=== PATIENT | male | born 1965 | race African-American/Black ===

== ENCOUNTER → 2016-12-26 | Outpatient (CLI) | payer OTHER | LOC: MMPC 11:11 | PROVIDERS: ATTEND Nurse Practitioner | DX: R07.81 Pleurodynia (principal); M25.571 Pain in right ankle and joints of right foot; W00.9XXA Unspecified fall due to ice and snow, initial encounter | CPT/HCPCS: 99213; G0463 ==

== ENCOUNTER → 2017-02-04 | Outpatient (CLI) | payer OTHER ==
--- NOTE | 2017-02-04 13:57 | DI ---
RIGHT ANKLE, 02/04/2017 11:18 AM: Clinical History: Chronic right ankle pain. Previous Exam: 04/28/2016. 3 views are submitted. There is no acute soft tissue, osseous, or joint abnormality. On the previous exam, there was a fracture of the calcaneus and this has healed. Readin. No acute abnormality of the ankle joint is seen. 2. The calcaneal fracture has healed.
== END ==
LOC: RAD 11:13
PROVIDERS: ATTEND Internal Medicine
DX: M25.571 Pain in right ankle and joints of right foot (principal)
CPT/HCPCS: 73610

== ENCOUNTER → 2017-02-10 | Outpatient (CLI) | payer OTHER | LOC: MMPC 11:11 | PROVIDERS: ATTEND Internal Medicine | DX: M25.571 Pain in right ankle and joints of right foot (principal); I10 Essential (primary) hypertension | CPT/HCPCS: 99213 ==

== ENCOUNTER → 2017-02-26 | Outpatient (CLI) | payer OTHER | LOC: MMPC 10:00 | PROVIDERS: ATTEND Physician Assistant | DX: M25.571 Pain in right ankle and joints of right foot (principal); M72.2 Plantar fascial fibromatosis; S92.001S Unspecified fracture of right calcaneus, sequela | CPT/HCPCS: 99212; G0463 ==

== ENCOUNTER 2017-12-01 05:54 | Inpatient (IN) ==
[2017-12-01] MEDS ORDERED: NORMAL SALINE 10 ML SYRINGE FLUSH IVP PRN ×2 (06:12→09:16)
[2017-12-01 07:24] LABS: BASOPHILS # (AUTO) 0.01 10*3/UL; BASOPHILS % (AUTO) 0.2 % (0-1); EOSINOPHILS # (AUTO) 0.06 10*3/UL; EOSINOPHILS % (AUTO) 1.2 % (0-8); Hemoglobin [HGB] 15.8 g/dL (14.0-18.0); LYMPHOCYTES # (AUTO) 1.73 10*3/uL; MEAN CORPUSCULAR HEMOGLOBIN 37.1 PG (27-31); MEAN CORPUSCULAR HGB CONC 36.7 g/dL (33-37); MEAN CORPUSCULAR VOLUME 100.9 FL (80-90); MEAN PLATELET VOLUME 8.6 FL (7.4-12.2); MONOCYTES # (AUTO) 0.89 10*3/UL (0.3-0.8); NEUTROPHILS # (AUTO) 2.24 10*3/UL; NEUTROPHILS % (AUTO) 45.3 % (50-80); RED BLOOD COUNT 4.26 10^6/uL (4.70-6.10)
[2017-12-01 07:25] LABS: PLATELET MORPHOLOGY COMMENT NORMAL MORPHOLOGY (NORM); RBC MORPHOLOGY COMMENT NORMAL MORPHOLOGY (NORM); WBC MORPHOLOGY COMMENT NORMAL MORPHOLOGY (NORM)
[2017-12-01 07:32] LABS: BLOOD UREA NITROGEN 6 mg/dL (7-22); BUN/CREATININE RATIO 6.66 (6-20); SERUM ALBUMIN 4.2 g/dL (3.5-4.8)
[2017-12-01] MEDS ORDERED: POTASSIUM CHLORIDE 20 MEQ TAB PO ONE ×2 (07:57→09:16)
--- NOTE | 2017-12-01 08:09 | EKG ---
[address] [place] [address] Measurements Intervals [place] Rate: 74 P: 67 [place]: 158 QRS: 11 QRSD: 111 T: 31 QT: 345 QTc: 373 Interpretive Statements SINUS RHYTHM MODERATE INTRAVENTRICULAR CONDUCTION DELAY [110+ ms QRS DURATION] NONSPECIFIC ST & T-WAVE ABNORMALITY Compared to ECG 05/12/2016 13:41:10 Intraventricular conduction delay now present T-wave abnormality now present (consistent with hypokalemia) Electronically Signed On 12-01-17 16:09:52 MST by Jose A Baron MD [email or web address]
--- NOTE | 2017-12-01 09:07 | PDOC ---
General Adult HPI - General Chief Complaint: Respiratory Complaint Stated Complaint: Lightheaded and starting to get short of breath. Date Seen by Provider: 12/01/17 Time Seen by Provider: 06:10 - History of Present Illness Initial Comment: This patient is a very nice 52-year-old -[place] gentleman who presents to the emergency department with complaints of dyspnea and not breathing right. He states that he has not had fever or chills or cough or increased sputum production he has not had any general malaise. He just feels that his respirations are not right. 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 Otherwise he has not had nausea vomiting diarrhea or other infective type of symptoms as well. He is denying any chest pain. He is denying any palpitations. Have you received a tetanus shot in the past 10 years?: Yes - Patient Home Medications Home Medications: Home Medications Diclofenac Sodium 1 gm TP QID #1 gm 02/03/17 amlodipine 10 mg tablet 10 mg PO QDAY #30 tab 10/23/17 levothyroxine 100 mcg tablet 100 mcg PO QDAY #30 tab 10/23/17 - Patient Allergies Allergies/Adverse Reactions: Allergies 3 Allergy/AdvReac Type Severity Reaction Status Date / Time No Known Allergies Allergy Verified 11/22/17 12:39 Past Medical History - heen HEENT History: Chipped or Loose Teeth, Other (please comment) Additional HEENT History: MULT. DENTAL CARIES Cardiovascular History: Hypertension Respiratory History: Other (please comment) Additional Respiratory History: TRACHECTOMY AFTER HAVING VOCAL CORD CANCER Gastrointestinal History: Denies History Genitourinary History: Denies History Endocrine History: Denies History Musculoskeletal History: Denies History Prosthesis or Implant: No Neurological History: Denies History Blood Disorders: Denies History Psychiatric History: Denies History History of Sexually Transmitted Diseases: No Male Reproductive History: Denies History Cancer History: Other (please comment) Cancer Treatment / Date(s) of Treatment: 2009 In Past Year Been Physically Harmed or Verbally Threatened: No History of MDRO: No History of Other Communicable Diseases: No Tobacco Use: Current Every Day Smoker Alcohol Use: Occasionally Type of alcohol normally used: Beer In the Past 12 Months, Have Used or Abuse Any Substance: None Previous Surgical History: Yes Type / Date of Surgery: tracheotomy only Significant Family History: No pertinent family hx Past Medical History Reviewed: Reviewed - No Changes ROS - Limitations ROS Limitations: No Limitations Constitution: REPORTS: Denies Symptoms Cardiovascular: REPORTS: Denies Cardiac Symptoms Neurological: REPORTS: Denies Neuro Symptoms Gastrointestinal: REPORTS: Denies GI Symptoms General Adult Exam - General Appearance General Appearance: POSITIVE: Alert, Cooperative, No Acute Distress - HEENT HEENT: POSITIVE: Head Inspection Nml, Eyes Inspection Nml - Neck Neck: POSITIVE: Normal Inspection - Respiratory Respiratory: POSITIVE: No Respiratory Distress, Breath Sounds Normal - Cardiovascular Cardiovascular: POSITIVE: Regular Rate & Rhythm, No Murmur - Abdomen Abdomen: Soft: (All Quadrants), Normal Bowel Sounds: (All Quadrants), Denies Tenderness: (All Quadrants) - Extremities Extremity: Non-Tender: (All Extremities), Normal ROM: (All Extremities), Normal Inspection: (All Extremities) General Adult Progress - Results Reviewed by me Xrays/CTs/US Reviewed by me: Yes Radiology Findings: Benign appearing chest x-ray and CT angiogram of the chest does not show obvious pathology radiology over read is pending CBC and BMP: 12/01/17 06:50 12/01/17 06:50 - Patient's Progress Status: POSITIVE: Improved MDM / ED Course: Initial evaluation was done and showed that his vitals were relief white benign he was not hypoxic at all and not tachycardic and still not complaining of chest pain. Initial labs showed no significant abnormality of the exception of a low potassium at 1.9 and an elevated d-dimer. Chest x-ray appear benign as well. CT angiogram was performed due to history of malignancy and elevated d- dimer and complaint of shortness of breath. I have not gotten back the official over read on his CT angiogram but I do not see any significant PE based on my own read. He has been given 20 mEq IV potassium and 20 mEq of oral potassium and will be admitted for observation today to evaluate his hypokalemia and to wait for over read of his chest CT and monitor his respiratory condition. His case has been discussed the hospitalist who agrees to accept the patient. Patient Care Time - Estimated PCT Patient Care Time (In Minutes): 35 Vital Signs - Recent Vital Signs Vital Signs: Vital Signs (Last 8 hours) Temp Pulse Pulse Resp BP Pulse Ox 12/01/17 08:09 74 12/01/17 06:07 96 F L 81 16 114/78 98 - VS Reviewed Vital Signs Reviewed: Yes Discharge Clinical Impression: Hypokalemia Discharge Disposition: Admit to Observation Condition: Stable Follow Up With: EMILY QUINONEZ [Primary Care Provider] -
[2017-12-01] MEDS ORDERED: ACETAMINOPHEN 325 MG TABLET PO PRN (09:16)
[2017-12-01] MEDS ORDERED: CALCIUM CARBONATE 500 MG (TUMS) CHEWABLE TABLET PO PRN (09:16)
[2017-12-01] MEDS ORDERED: LIDOCAINE W/ SODIUM BICARB 0.5 ML SYR SUBD PRN (09:16)
[2017-12-01] MEDS ORDERED: Magnesium Sulfate 2gm (Premix) 2 GM/50 ML BAG IV ONE (09:16)
[2017-12-01] MEDS ORDERED: ONDANSETRON 4 MG/2 ML VIAL IVP PRN (09:16)
--- NOTE | 2017-12-01 09:32 | DI ---
PA /LATERAL CHEST X-RAY, 12/01/2017 6:12 AM : Clinical History: Shortness of breath. Previous Exam: 12/02/2015. There is no acute soft tissue or bony abnormality. The patient has a permanent tracheostomy tube and the tube is in the appropriate position. Heart size is normal. Lungs are clear. Mediastinal structure s are normal. There are no pulmonary nodules. Reading: Normal chest x-ray. There has been no significant interval change.
--- NOTE | 2017-12-01 09:39 | DI ---
CT ANGIOGRAM OF THE CHEST, 12/01/2017 8:02 AM : Clinical History: Dyspnea. Elevated D-dimer test. Previous Exam: None at this facility. Scans are performed from the base of the neck to the lower lung bases following IV administration of 65 mL of Isovue 300. Proprietary automated bolus tracking software was used to verify the timing of t he injection. The base of the neck and thoracic inlet are normal except for decreased density in the thyroid gland as well as presence of a permanent tracheostomy tube. There are no abnormal axillary, supraclavicular , mediastinal, or hilar nodes. The heart is normal. There is clot present in branches to the right up per lobe causing partial occlusion. These involve branches to the 3 segments. There is no evidence of a pulmonary infarct. No other pulmonary embolism is identified. The lungs are clear and there are no pulmonary nodules or masses. Both adrenal glands and the spleen and the visualized portions of the p ancreas are normal. Fatty infiltration of the liver is suspected. READIN. There are pulmonary emboli extending to branches of all 3 segments of the right upper lobe causin g partial occlusion of those vessels. There is no pulmonary infarction. 2. The remainder of the study is normal. 3. There may be fatty infiltration of the liver. There is decreased density in the thyroid gland sug gesting this patient may have underlying hypothyroidism.
[2017-12-01 10:26] LABS: BILIRUBIN,URINE NEGATIVE (NEG); CLARITY,URINE CLEAR (CLEAR); COLOR,URINE YELLOW (Y); GLUCOSE, URINE (UA) NEGATIVE (NEG); OCCULT BLOOD,URINE NEGATIVE (NEG); PROTEIN,URINE NEGATIVE (NEG)
[2017-12-01 10:28] LABS: URINE SAMPLE TYPE CLEAN CATCH URINE
[2017-12-01 11:54] LABS: RANDOM URINARY POTASSIUM < 2.5 MMOL/DAY (25.0-125.0)
[2017-12-01] MEDS: ENOXAPARIN SODIUM 80 MG/0.8 ML SYRINGE SUBCUT SCH (12:53)
--- NOTE | 2017-12-01 12:59 | PDOC ---
HPI - History of Present Illness Date of Service: 12/01/17 Time of Service: 11:00 Chief Complaint: Shortness of breath History of Present Illness: This very pleasant 52-year-old male with prior history of vocal cord cancer status post surgery, chemotherapy, and radiation, who had this happen about 6-7 years ago, who comes in this morning complaining of shortness of breath. He felt it was of sudden onset. He has some chronic intermittent posterior neck pain that's probably related to a lipoma that felt different to him today. He had she felt like he may have had a blood clot. He had no fevers, no cough, no chills. No secretions via the tracheostomy tube that is permanently in place. He's never had a blood clot before. He continues to smoke about a half pack per day. He did not try anything interventionally to make the symptoms better, but when it persisted and got worse over the last day or so, he came in for evaluation in the emergency room. A CT scan was done in the emergency room, and on my view of the results, it is positive for pulmonary emboli and on my view there is no evidence of infarct or pneumonia. In addition, the patient was found to have a low potassium at 1.9 and his last couple of potassiums in clinic draws have been low. It is possible that he had some damage to his potassium and magnesium sequestration from the kidneys due to chemotherapy agents. I do not know what regimen he was on. He is not requiring oxygen at this point and is not hypoxic. He does not have any evidence of right heart strain on his EKG. Denies sickle cell anemia. Past Medical History Medical History: 1. Vocal cord cancer. 2. Hypertension. 3. Tobacco abuse. 4. 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 5. Carpal tunnel syndrome, right side Surgical History: Vocal cord removal. This was related to cancer. Pertinent Family History: Significant for coronary artery disease. Past Social History: Smokes half pack per day, does drink alcohol occasionally. In a committed relationship. Has 2 biologic children and 11 children overall , all of whom are healthy. He is currently on disability. Tobacco Use: Current Every Day Smoker Do you dip or chew tobacco: No In the Past 12 Months, Have Used or Abuse Any of the Following Substance: None Alcohol Use: Occasionally Medication / Allergies Home Medications: Home Medications Medication Instructions Recorded Confirmed Type amlodipine 10 mg tablet 10 mg PO QDAY #30 tab 10/23/17 12/01/17 Rx levothyroxine 100 mcg tablet 100 mcg PO QDAY #30 tab 10/23/17 12/01/17 Rx Allergies/Adverse Reactions: Allergies 3 Allergy/AdvReac Type Severity Reaction Status Date / Time No Known Allergies Allergy Verified 12/01/17 09:37 Review of Systems - Review of Systems All Systems: Reviewed & No Additional Complaints Except as Stated (I did a 12 point review systems and other than that discussed in history present illness the review systems is negative. Exceptions are noted below.) - Respiratory Respiratory: REPORTS: See HPI - Cardiovascular Cardiovascular: REPORTS: Negative System Review - Additonal Details Additional ROS Details: Chronic neck pain, probably from a lipoma, and carpal tunnel on the right. Exam - Vitals Vital Signs: Vital Signs Temperature 98 F Temperature Source Temporal Artery Scan Pulse Rate [Pulse Oximeter 76 Bilateral Radial] Respiratory Rate 18 Blood Pressure [Left Arm] 146/80 Pulse Ox 93 Oxygen Delivery Method Room Air Height 5 ft 6 in Weight 137 lb 3.2 oz - General General Appearance: No Acute Distress, Cooperative - Head Head Exam: Normal Inspection, Normocephalic, Atraumatic - Eye Eye Exam: POSITIVE: No Scleral Icterus - ENT ENT Exam: POSITIVE: Mucous Membranes Moist - Neck Neck Exam: No Tenderness, No Lymphadenopathy, No Thyromegaly Additional Neck Exam Details: Tracheostomy present, no secretions. No erythema surrounding the tracheostomy site - Respiratory Respiratory Exam: POSITIVE: Clear to Auscultation - Bilaterally, Breathing Non Labored, Normal to Percussion and Palpation - Cardiovascular Cardiovascular Exam: POSITIVE: RRR, No Murmur, No Clicks, No Gallops, No Rubs, No JVD - GI/Abdominal GI/Abdominal Exam: POSITIVE: Normal Bowel Sounds, Non Tender, Non Distended, Soft - Rectal Rectal Exam: POSITIVE: Deferred - External Exam: POSITIVE: Deferred Exam: POSITIVE: Deferred - Extremities Extremities Exam: POSITIVE: No Clubbing Present, No Edema Present, No Cyanosis Present - Back Back Exam: POSITIVE: Normal Inspection, No CVA Tenderness - Neurological Neurological Exam: POSITIVE: Alert, Oriented x 3, No Facial Droop, Speech Intact / Clear, Moves All Extremities Equally - Psychiatric Psychiatric Exam: POSITIVE: Normal Affect, Normal Mood Results - Labs CBC and BMP: 12/01/17 06:50 12/01/17 06:50 Additional Lab Results: Laboratory Results 12/01/17 12/01/17 12/01/17 Range/Units 06:50 06:50 06:50 WBC 4.95 (4.8-10.8) 10^3/uL RBC 4.26 L (4.70-6.10) 10^6/uL Hgb 15.8 (14.0-18.0) g/dL Hct 43.0 (42.0-52.0) % MCV 100.9 H (80-90) FL MCH 37.1 H (27-31) PG MCHC 36.7 (33-37) g/dL RDW Std Deviation 57.1 H (39-50) fL RDW Coeff of Ming 15.9 H (11.5-14.5) % Plt Count 234 (140-350) 10*3/uL MPV 8.6 (7.4-12.2) FL Immature Gran % (Auto) 0.4 (0-5) % Neut % (Auto) 45.3 L (50-80) % Lymph % (Auto) 34.9 (10-50) % [place] % (Auto) 18.0 H (5-15) % Eos % (Auto) 1.2 (0-8) % Baso % (Auto) 0.2 (0-1) % Immature Gran # (Auto) 0.02 10*3/UL Neut # (Auto) 2.24 10*3/UL Lymph # (Auto) 1.73 10*3/uL [place] # (Auto) 0.89 H (0.3-0.8) 10*3/UL Eos # (Auto) 0.06 10*3/UL Baso # (Auto) 0.01 10*3/UL WBC Morphology Comment Normal morphology (NORM) Plt Morphology Comment Normal morphology (NORM) RBC Morph Comment Normal morphology (NORM) D-Dimer 0.79 H (0.00-0.59) mg/L Sodium 142 (135-145) meq/L Potassium 1.9 L* (3.8-5.2) meq/L Chloride 97 L (98-112) meq/L Carbon Dioxide 28 (23-33) meq/L Anion Gap 17 (5-20) BUN 6 L (7-22) mg/dL Creatinine 0.9 (0.70-1.50) mg/dL Estimated GFR > 60 (>60 ml/min/1.73m(2)) BUN/Creatinine Ratio 6.66 (6-20) Glucose 120 H (78-110) mg/dL Calculated Osmolality 292.0 (267-292) mOsm/kg Calcium 9.1 (8.7-10.7) mg/dL Magnesium (1.6-2.4) mg/dL Total Bilirubin 0.9 (0.3-1.2) mg/dL AST 43 (21-57) IU/L ALT 35 (21-72) IU/L Alkaline Phosphatase 141 H (38-126) IU/L Total Protein 7.7 (6.1-8.0) g/dL Albumin 4.2 (3.5-4.8) g/dL Globulin 3.5 (2.50-4.10) g/dL Albumin/Globulin Ratio 1.20 L (1.3-2.0) mg/g Ur Collection Type Urine Color (Y) Urine Clarity (CLEAR) Urine pH (5.0-8.5) Ur Specific [place] (1.005-1.030) Urine Protein (NEG) mg/dl Urine Glucose (UA) (NEG) mg/dL Urine Ketones (NEG) Urine Occult Blood (NEG) Urine Nitrate (NEG) Urine Bilirubin (NEG) Urine Urobilinogen (0.2) EU/dL Ur Leukocyte Esterase (NEG) Ur Culture Indicated? Ur Random Creatinine MG/DL Ur Random Sodium Ur Random Potassium (25.0-125.0) MMOL/DAY 12/01/17 12/01/17 12/01/17 Range/Units 10:20 10:20 Unknown WBC (4.8-10.8) 10^3/uL RBC (4.70-6.10) 10^6/uL Hgb (14.0-18.0) g/dL Hct (42.0-52.0) % MCV (80-90) FL MCH (27-31) PG MCHC (33-37) g/dL RDW Std Deviation (39-50) fL RDW Coeff of Ming (11.5-14.5) % Plt Count (140-350) 10*3/uL MPV (7.4-12.2) FL Immature Gran % (Auto) (0-5) % Neut % (Auto) (50-80) % Lymph % (Auto) (10-50) % [place] % (Auto) (5-15) % Eos % (Auto) (0-8) % Baso % (Auto) (0-1) % Immature Gran # (Auto) 10*3/UL Neut # (Auto) 10*3/UL Lymph # (Auto) 10*3/uL [place] # (Auto) (0.3-0.8) 10*3/UL Eos # (Auto) 10*3/UL Baso # (Auto) 10*3/UL WBC Morphology Comment (NORM) Plt Morphology Comment (NORM) RBC Morph Comment (NORM) D-Dimer (0.00-0.59) mg/L Sodium (135-145) meq/L Potassium (3.8-5.2) meq/L Chloride (98-112) meq/L Carbon Dioxide (23-33) meq/L Anion Gap (5-20) BUN (7-22) mg/dL Creatinine (0.70-1.50) mg/dL Estimated GFR (>60 ml/min/1.73m(2)) BUN/Creatinine Ratio (6-20) Glucose (78-110) mg/dL Calculated Osmolality (267-292) mOsm/kg Calcium (8.7-10.7) mg/dL Magnesium 1.8 (1.6-2.4) mg/dL Total Bilirubin (0.3-1.2) mg/dL AST (21-57) IU/L ALT (21-72) IU/L Alkaline Phosphatase (38-126) IU/L Total Protein (6.1-8.0) g/dL Albumin (3.5-4.8) g/dL Globulin (2.50-4.10) g/dL Albumin/Globulin Ratio (1.3-2.0) mg/g Ur Collection Type Clean catch urine Urine Color Yellow (Y) Urine Clarity Clear (CLEAR) Urine pH 7.0 (5.0-8.5) Ur Specific [place] 1.015 (1.005-1.030) Urine Protein Negative (NEG) mg/dl Urine Glucose (UA) Negative (NEG) mg/dL Urine Ketones Negative (NEG) Urine Occult Blood Negative (NEG) Urine Nitrate Negative (NEG) Urine Bilirubin Negative (NEG) Urine Urobilinogen 2.0 (0.2) EU/dL Ur Leukocyte Esterase Negative (NEG) Ur Culture Indicated? Culture not set Ur Random Creatinine 13.9 MG/DL Ur Random Sodium Wood Handler Ur Random Potassium < 2.5 L (25.0-125.0) MMOL/DAY - EKG Data -: EKG Interpreted by Me Rate: Normal EKG Shows Normal: Sinus Rhythm - EKG Data EKG Interpretation: Nonspecific ST-T Wave Changes - Imaging Status: Image Reviewed by Me (Chest x-ray is negative on my view. CT scan of chest, negative for pneumonia or pulmonary infarct. Radiologist stated that it was positive for right upper lobe branch pulmonary emboli) Assessment and Plan - Patient Problems (1) Acute pulmonary embolism Current Visit: Yes Status: Acute Code(s): I26.99 - Other pulmonary embolism without acute cor pulmonale Qualifiers: Pulmonary embolism type: other Acute cor pulmonale presence: without acute cor pulmonale Qualified Code(s): I26.99 - Other pulmonary embolism without acute cor pulmonale (2) Hypokalemia Current Visit: Yes Status: Acute Code(s): E87.6 - Hypokalemia (3) Hypertension Current Visit: Yes Status: Acute Code(s): I10 - Essential (primary) hypertension Qualifiers: Hypertension type: essential hypertension Qualified Code(s): I10 - Essential (primary) hypertension (4) Tracheostomy in place Current Visit: Yes Status: Acute Code(s): Z93.0 - Tracheostomy status (5) hypothyroidism Current Visit: Yes Status: Chronic (6) cancer of vocal cords Current Visit: Yes Status: Resolved - Assessment / Plan Additional Assessment/Plan Details: Replace magnesium and potassium. May need renal follow-up as an outpatient. Get arranged with hematology and oncology determine length of therapy this can be done as an outpatient. I think ultimately probably is at high risk as this appears to be provoked with risk factors of tobacco abuse and prior cancer, but may warrant further screening of cancer as well such as repeat colonoscopy. Spoke to him about Coumadin, Xarelto, and other medications, including bleeding risks and ability to prevent another blood clot. Ultimately he would like to do eliquis, but not sure yet if it will be cost prohibitive. We will call into his pharmacy and figure that out. Then presented the patient with options, ultimately as mentioned he has his choice made, but this may not be economically feasible. Oxygen as necessary. Get ultrasounds of upper extremities and jugular veins. Get echocardiogram to make sure there is no evidence of right heart strain. I spoke with the patient about quitting smoking as well and advised him to quit smoking and we will current nicotine patch here. He is committed to trying this , this developed plan of nicotine patches. plan above discussed with patient and his girlfriend and they agreed.
[2017-12-01] MEDS ORDERED: DICLOFENAC SODIUM 1 GM TP SCH (13:00)
[2017-12-01] MEDS ORDERED: IBUPROFEN 600 MG TABLET PO PRN (13:45)
[2017-12-01 14:38] LABS: BLOOD UREA NITROGEN 4 mg/dL (7-22); BUN/CREATININE RATIO 5.71 (6-20)
[2017-12-01] MEDS: POTASSIUM CHLORIDE 20 MEQ TAB PO SCH ×2 (15:15→20:02)
--- NOTE | 2017-12-01 18:10 | DI ---
DUPLEX COLOR DOPPLER CAROTID ULTRASOUND, 12/01/2017 2:01 PM: Clinical History: [place]. 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 Previous Exam: None at this facility. Technique: 2D real time imaging is supplemented with duplex color doppler ultrasound imaging. RIGHT CAROTID ARTERY: 2D real time imaging of the right carotid system shows occlusion of the right common carotid artery. This has the appearance of thrombus rather than classic plaque disease. The common carotid artery is occluded at the origin from the subclavian artery. At the bifurcation, flow is visualized in the inte rnal and extra carotid arteries and the waveform is reverse indicating retrograde filling. Peak systo lic velocities through the right external and internal carotid arteries are approximately 4 cm/s, res pectively. There is apparent complete occlusion of the common carotid artery and there is slow flow t hat is reversed in the external and internal carotid arteries indicating retrograde perfusion from th e left side in the [place]. LEFT CAROTID ARTERY: 2D real time imaging of the left carotid system shows minimal intimal thickening of the proximal comm on carotid artery with some calcified plaques at the junction between the proximal and middle thirds of the common carotid artery. Noncalcified plaques are present in the distal common carotid artery an d the carotid bulb. Peak systolic velocities through the left common carotid, the external carotid, a nd the internal carotid are 122 cm/s, 29 cm/s, and 172 cm/s, respectively. The values for the left co mmon carotid artery and external carotid artery correspond to diameter stenoses of 0-49%. Evaluate fo r the left internal carotid artery corresponds to a diameter stenosis of 50-74%. VERTEBRAL ARTERIES: There is antegrade flow through the left vertebral artery. There is vascular flow in the region of th e right vertebral artery but this appears to be venous. Cardiac rhythm is regular. Peak systolic [place] through the visualized portions of the left vertebral artery is 83 cm/s. This value corresponds to a diameter stenoses of 0-49%. Readin. 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 There is flow in the right external and internal carotid arteries but this is of markedly low flow and apparently is reversed in direction indicating retrograde filling fr om the left side via the [place]. 2. There is no hemodynamically significant stenosis of the left carotid system. 3. The right vertebral artery may be totally occluded. There is antegrade flow through the left vert ebral artery with a normal sinus rhythm.
[2017-12-01] MEDS: Apixaban 5 MG TABLET PO SCH (20:01)
[2017-12-01] MEDS ORDERED: DOCUSATE 100 MG CAPSULE PO PRN (21:00)
[2017-12-01] MEDS ORDERED: Zolpidem Tab 5 MG TAB PO PRN (21:04)
--- NOTE | 2017-12-01 22:49 | DI ---
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 Previous Exam: None at this facility. Comparison is made with a CT scan of the neck with IV contrast from 10/09/2014. Pre-and postcontrast scans are performed from the sternal notch to of the neck to the base of the [facility] following IV administration of 70 mL of Isovue 300. Proprietary automated bolus tracking software was used to verify the timing of the injection. The base of the neck and thoracic inlet are normal. The focal cords and larynx are not identified con sistent with the history of prior laryngectomy. The patient has a permanent tracheostomy tube. There are no abnormal cervical lymph nodes. The right common carotid artery is occluded at its origin from the subclavian artery up to the bifurcation. Contrast is present in the superior aspect of the caroti d bulb and the right internal and extrahepatic arteries but these vessels are small and ultrasound sh owed that there was retrograde perfusion of these vessels. Review of the CT scan of the neck from shows that the right common carotid artery was patent. The right internal carotid artery to t base of the skull is normal. The left common carotid artery and external and internal carotid luz marina connie are patent and there are calcified plaques in the posterior aspect of the carotid bulb. The inte rnal carotid artery to the base of the skull is normal. There is occlusion of the right vertebral art facundo less than 1 cm distal to its origin. Review of the previous CT scan shows that in retrospect this vessel was occluded although there was retrograde filling of a venous channel in the right side of t he neck that simulated the right vertebral artery. There is a direct origin of the left vertebral art facundo from the aortic arch and this is normal to the base of the skull. READIN. There is complete occlusion of the right common carotid artery from its origin from the right sub clavian artery to the proximal half of the carotid bulb. The distal half of the carotid bulb and the right internal and extra carotid arteries are filled with contrast but the caliber of these vessels i s decreased and ultrasound showed that there was retrograde filling of these vessels. This occlusion is new since the prior CT scans of 10/09/2014. 2. There is complete occlusion of the right vertebral artery near its origin all the way to the base of the skull. Review of the prior CT scans from 10/09/2014 shows that it was occluded at that time a lthough there were some venous channels that filled in the neck region from the right arm injection a nd this simulated the appearance of a patent right vertebral artery. 3. The left vertebral artery has a direct origin from the aortic arch and is normal. CT ANGIOGRAPHY OF THE [place], 12/01/2017 3:28 PM : Clinical History: See above. Previous Exam: None at this facility. Non contrast head scans are performed. This is the same bolus of Isovue [address] angiogram of the neck. High resolution axial thin slices through the [place] are obtained during the a rterial phase. 3D MIPS and multiplanar reconstructions are generated from the acquired data using the [employer] off line processing program. The left vertebral artery is normal. The right vertebral artery is occluded near its origin to the ba silar artery. There is no basilar tip aneurysm or aneurysm arising from the vertebral-basilar branche s. There are large posterior communicating arteries, and the left side is larger than the right. The right cavernous and petrous portions of the internal carotid artery are small in caliber. No definite anterior communicating artery is identified. The A1 and A2, and the M1 through M3 branches bilateral ly are normal. The pre-and postcontrast scans of the brain are normal. READIN. The right petrous and cavernous portions of the internal carotid artery are small in caliber, but are otherwise normal. The small caliber of the right intracranial portions of the internal carotid a rtery is secondary to the fact that the right common carotid artery is occluded and there is retrogra de filling of this internal carotid artery via the posterior communicating arteries. The left intracr anial portion of the internal carotid artery is normal. There are bilateral large posterior communica ting arteries with the left side larger than the right side. There is no discernible anterior communi cating artery. The A1-A2 and M1-and 3 rashes bilaterally are intact. 2. Pre-and postcontrast scans of the brain are normal.
[2017-12-02] MEDS: ENOXAPARIN SODIUM 80 MG/0.8 ML SYRINGE SUBCUT SCH (00:08)
[2017-12-02 00:12] VITALS: RESP 16
[2017-12-02] MEDS ORDERED: LEVOTHYROXINE 100 MCG TABLET PO SCH (05:30)
[2017-12-02 08:06] LABS: HEMOGLOBIN A1C 5.03 % (4.2-6.0)
[2017-12-02 08:10] LABS: BLOOD UREA NITROGEN 3 mg/dL (7-22); BUN/CREATININE RATIO 4.28 (6-20); CHOL/HDL RATIO 3.62 RATIO (0-4.0); SERUM CHOLESTEROL 145 mg/dL (120-200)
[2017-12-02] MEDS ORDERED: LORazepam 2 MG/1 ML VIAL IVP ONE (08:49)
[2017-12-02] MEDS: Apixaban 5 MG TABLET PO SCH (09:06)
[2017-12-02] MEDS: POTASSIUM CHLORIDE 20 MEQ TAB PO SCH (09:07)
[2017-12-02] MEDS ORDERED: POTASSIUM CHLORIDE 20 MEQ TAB PO ONE (09:42)
[2017-12-02] MEDS ORDERED: Magnesium Sulfate 2gm (Premix) 2 GM/50 ML BAG IV ONE (09:43)
[2017-12-02 11:35] VITALS: BP 129/76; TEMP 97; O2SAT 94
--- NOTE | 2017-12-02 13:42 | DCSUMMARY ---
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 He has hypertension as well. He came in with shortness of breath and he thought he might have a pulmonary emboli. He was correct, and he had an upper lobe on the right pulmonary emboli obstructing 3 pulmonary arteries. From an oxygenation standpoint and a right heart strain standpoint he did fine, he had no evidence of right heart strain and he actually has a low pulmonary embolism severity index score and could go home on therapy. We spent a lot of time trying to figure out if he would be able to afford eliquis, and finally figured out that he would be able to do that so that is the medication he would like to go with. We discussed Coumadin, Xarelto , and the risks and benefits of all these medications including bleeding risks reversibility risks and prevention of future blood clot risk. I told him I think he needs to remain on this for 6 months minimum, and possibly his lifetime given his history of cancer and the fact that this appears unprovoked. He has had a negative colonoscopy within the last 7 years. While imaging to see if he had any upper extremity DVTs, we found that he had a right carotid artery occlusion and that was worked up and full. I spoke with interventional radiology and neurology in [facility] emergency department consultation, and this is not amenable to any surgical therapy or stent therapy, and medical therapy is only patient's option. I strongly recommended that the patient quit smoking and quit drinking alcohol, continue to treat his blood pressure, add aspirin therapy, and if he can get off of DVT/PE therapy, I would recommend that he goes to her Plavix. He also should be on high-dose statin or intensive therapy and I prescribed that form discussing both the risks and benefits of these medications. The vitamin B12 and folic acid levels are low, so we will replace those. The potassium is low we'll continue potassium therapy, did improve, but the patient does not want to be in the hospital any further, he is expressed extreme dissatisfaction with blood pokes, vena puncture, and continued testing. He would like to leave and I think that if we continue him on oral supplemental potassium, and have him cut back his alcohol that he will do okay. We will also get a 24-hour urine potassium, and the nephrology office will call him and arrange an appointment to review this. I still cannot rule out that this might not be some sort of problem with potassium and magnesium metabolism after chemotherapy in the past. Given the resolution of these issues, no completes of chest pain, short is breath, nausea or vomiting, patient is subsequently discharged home. This discharge And much faster, I would prefer that he stay another day to watch his potassium and continue replacement, but he is adamant that he goes home today. So we will do the best that we can. He still meets inpatient criteria. However, I am not fond of AGAINST MEDICAL ADVICE discharges as they really don't allow the development of a good plan for patient. Assessment and Plan: 1. As per discharge assessments noted 2. Disposition: Patient discharged home. 3. Condition on discharge, stable and improved. 4. Diet: regular diet 5. Activities: resume normal activities, but quit smoking and drinking 6. Follow-Up: 1. Dr. Duff one week with electrolyte review 2. Kidney specialist to review potassium 3. Warehouse Lead/oncologist to review PE therapy 7. Medications at the Time of Discharge: Home Medications Medication Instructions Recorded Confirmed Type amlodipine 10 mg tablet 10 mg PO QDAY #30 tab 10/23/17 12/01/17 Rx levothyroxine 100 mcg tablet 100 mcg PO QDAY #30 tab 10/23/17 12/01/17 Rx Apixaban [Eliquis] 5 mg PO BID #60 tab 12/02/17 Rx Aspirin [Aspir 81] 81 mg PO DAILY #90 tablet. 12/02/17 Rx Atorvastatin Calcium [Lipitor] 80 mg PO QPM #30 tab 12/02/17 Rx Cyanocobalamin (Vitamin B-12) 2,500 mcg PO DAILY #90 tab 12/02/17 Rx [Vitamin B12] Multivitamin/Folic Acid/Dha 1 ea PO DAILY #90 tab.chew 12/02/17 Rx [One-A-Day Vitacraves [place]-3] Potassium Chloride [Klor-Con] 40 meq PO BID #14 tab 12/02/17 Rx 8. Time, care, counseling and coordination of care for this discharge is greater than 30 minutes. Exam - Vitals Vital Signs: Vital Signs Temperature 97 F Temperature Source Temporal Artery Scan Pulse Rate [Pulse Oximeter] 86 Pulse Rate [Pulse Oximeter 105 Bilateral Radial] Pulse Rate 74 Respiratory Rate 16 Blood Pressure [Left Arm] 129/76 Pulse Ox 94 Oxygen Flow Rate 2 Oxygen Delivery Method Room Air - General General Appearance: No Acute Distress, Cooperative - Head Head Exam: Normal Inspection, Normocephalic, Atraumatic - Eye Eye Exam: POSITIVE: No Scleral Icterus - ENT ENT Exam: POSITIVE: Mucous Membranes Moist - Neck Additional Neck Exam Details: Trach is clean, dry, intact - Respiratory Respiratory Exam: POSITIVE: Clear to Auscultation - Bilaterally, Breathing Non Labored - Cardiovascular Cardiovascular Exam: POSITIVE: RRR, No Murmur, No Clicks, No Gallops, No Rubs, No JVD - GI/Abdominal GI/Abdominal Exam: POSITIVE: Normal Bowel Sounds, Non Tender, Non Distended, Soft - Extremities Extremities Exam: POSITIVE: No Clubbing Present, No Edema Present, No Cyanosis Present - Neurological Neurological Exam: POSITIVE: Alert, Oriented x 3, No Facial Droop, Speech Intact / Clear, Moves All Extremities Equally Data Peritnent Studies: Laboratory Results 12/01/17 12/01/17 12/02/17 Range/Units 10:20 14:19 07:08 Sodium 143 144 (135-145) meq/L Potassium 2.4 L* 2.6 L (3.8-5.2) meq/L Chloride 98 101 (98-112) meq/L Carbon Dioxide 30 31 (23-33) meq/L Anion Gap 15 12 (5-20) BUN 4 L 3 L (7-22) mg/dL Creatinine 0.7 0.7 (0.70-1.50) mg/dL Estimated GFR > 60 > 60 (>60 ml/min/1.73m(2)) BUN/Creatinine Ratio 5.71 L 4.28 L (6-20) Glucose 114 H 94 (78-110) mg/dL Mean Blood Glucose mg/dL Hemoglobin A1c (4.2-6.0) % Calculated Osmolality 293.0 H 294.0 H (267-292) mOsm/kg Calcium 9.3 8.8 (8.7-10.7) mg/dL Triglycerides 146 (44-200) mg/dL Cholesterol 145 (120-200) mg/dL LDL Cholesterol, Calc 75.800 mg/dL VLDL Cholesterol 29 (0-40) mg/dL HDL Cholesterol 40 (40-150) mg/dL Cholesterol/HDL Ratio 3.62 (0-4.0) RATIO Vitamin B12 (239-931) pg/mL Serum Folate (2.76-20.0) NG/ML Ur Random Chloride 29 mmol/L 12/02/17 12/02/17 Range/Units 07:08 07:08 Sodium (135-145) meq/L Potassium (3.8-5.2) meq/L Chloride (98-112) meq/L Carbon Dioxide (23-33) meq/L Anion Gap (5-20) BUN (7-22) mg/dL Creatinine (0.70-1.50) mg/dL Estimated GFR (>60 ml/min/1.73m(2)) BUN/Creatinine Ratio (6-20) Glucose (78-110) mg/dL Mean Blood Glucose 81.499 mg/dL Hemoglobin A1c 5.03 (4.2-6.0) % Calculated Osmolality (267-292) mOsm/kg Calcium (8.7-10.7) mg/dL Triglycerides (44-200) mg/dL Cholesterol (120-200) mg/dL LDL Cholesterol, Calc mg/dL VLDL Cholesterol (0-40) mg/dL HDL Cholesterol (40-150) mg/dL Cholesterol/HDL Ratio (0-4.0) RATIO Vitamin B12 402 (239-931) pg/mL Serum Folate 3.12 (2.76-20.0) NG/ML Ur Random Chloride mmol/L [address] [facility] [place] [address] PH: DD: [phone] FAX: [phone] ~DIAGNOSTIC IMAGING REPORT~ Patient: Raymundo Meléndez : 1965 Sex: M Age: 52 Exam Name: CT CTA Head W/WO CN; CT CTA Neck WWO Contrast Exam Date: 12/01/17 Report # : [id number] CPT Code: 55527; 33692 EMR/MR #: [id number] Ordering: BRADLEY QUIROZ Admiting: BRADLEY QUIROZ DO Primary: Fransisco Duff MD Attending: BRADLEY QUIROZ DO Signed CT ANGIOGRAM OF THE NECK, 12/01/2017 3:28 PM : Clinical History: Right carotid artery occlusion identified on carotid Doppler ultrasound. Previous Exam: None at this facility. Comparison is made with a CT scan of the neck with IV contrast from 10/09/2014. Pre-and postcontrast scans are performed from the sternal notch to of the neck to the base of the skull following IV administration of 70 mL of Isovue 300. Proprietary automated bolus tracking software was used to verify the timing of the injection. The base of the neck and thoracic inlet are normal. The focal cords and larynx are not identified consistent with the history of prior laryngectomy. The patient has a permanent tracheostomy tube. There are no abnormal cervical lymph nodes. The right common carotid artery is occluded at its origin from the subclavian artery up to the bifurcation. Contrast is present in the superior aspect of the carotid bulb and the right internal and extrahepatic arteries but these vessels are small and ultrasound showed that there was retrograde perfusion of these vessels. Review of the CT scan of the neck from 10/09/2014 shows that the right common carotid artery was patent. The right internal carotid artery to the base of the skull is normal. The left common carotid artery and external and internal carotid arteries are patent and there are calcified plaques in the posterior aspect of the carotid bulb. The internal carotid artery to the base of the skull is normal. There is occlusion of the right vertebral artery less than 1 cm distal to its origin. Review of the previous CT scan shows that in retrospect this vessel was occluded although there was retrograde filling of a venous channel in the right side of the neck that simulated the right vertebral artery. There is a direct origin of the left vertebral artery from the aortic arch and this is normal to the base of the skull. READIN. There is complete occlusion of the right common carotid artery from its origin from the right subclavian artery to the proximal half of the carotid bulb. The distal half of the carotid bulb and the right internal and extra carotid arteries are filled with contrast but the caliber of these vessels is decreased and ultrasound showed that there was retrograde filling of these vessels. This occlusion is new since the prior CT scans of 10/09/2014. 2. There is complete occlusion of the right vertebral artery near its origin all the way to the base of the skull. Review of the prior CT scans from 2013 shows that it was occluded at that time although there were some venous channels that filled in the neck region from the right arm injection and this simulated the appearance of a patent right vertebral artery. 3. The left vertebral artery has a direct origin from the aortic arch and is normal. CT ANGIOGRAPHY OF THE [place], 12/01/2017 3:28 PM : Clinical History: See above. Previous Exam: None at this facility. Non contrast head scans are performed. This is the same bolus of Isovue [address] angiogram of the neck. High resolution axial thin slices through the [place] are obtained during the arterial phase. 3D MIPS and multiplanar reconstructions are generated from the acquired data using the [employer] off line processing program. The left vertebral artery is normal. The right vertebral artery is occluded near its origin to the basilar artery. There is no basilar tip aneurysm or aneurysm arising from the vertebral-basilar branches. There are large posterior communicating arteries, and the left side is larger than the right. The right cavernous and petrous portions of the internal carotid artery are small in caliber. No definite anterior communicating artery is identified. The A1 and A2 , and the M1 through M3 branches bilaterally are normal. The pre-and postcontrast scans of the brain are normal. READIN. The right petrous and cavernous portions of the internal carotid artery are small in caliber, but are otherwise normal. The small caliber of the right intracranial portions of the internal carotid artery is secondary to the fact that the right common carotid artery is occluded and there is retrograde filling of this internal carotid artery via the posterior communicating arteries. The left intracranial portion of the internal carotid artery is normal. There are bilateral large posterior communicating arteries with the left side larger than the right side. There is no discernible anterior communicating artery. The A1-A2 and M1-and 3 rashes bilaterally are intact. 2. Pre-and postcontrast scans of the brain are normal. Dictated By: 12/01/17 6750 MICKY BREAUX MD. Signed By: 12/01/17 3609 MICKY BREAUX MD. [address] [facility] [place] [address] PH: DD: [phone] FAX: [phone] ~DIAGNOSTIC IMAGING REPORT~ Patient: Raymundo Meléndez : 1965 Sex: M Age: 52 Exam Name: US Carotids Bilateral Exam Date: 12/01/17 Report # : [id number] CPT Code: 24931 EMR/MR #: [id number] Ordering: BRADLEY QUIROZ Admiting: BRADLEY QUIROZ DO Primary: Fransisco Duff MD Attending: BRADLEY QUIROZ DO Signed DUPLEX COLOR DOPPLER CAROTID ULTRASOUND, 12/01/2017 2:01 PM: Clinical History: Pla[place]. Abnormal venous Doppler ultrasound of the right upper extremity revealed apparent complete occlusion of the right common carotid artery. Previous Exam: None at this facility. Technique: 2D real time imaging is supplemented with duplex color doppler ultrasound imaging. RIGHT CAROTID ARTERY: 2D real time imaging of the right carotid system shows occlusion of the right common carotid artery. This has the appearance of thrombus rather than classic plaque disease. The common carotid artery is occluded at the origin from the subclavian artery. At the bifurcation, flow is visualized in the internal and extra carotid arteries and the waveform is reverse indicating retrograde filling. Peak systolic velocities through the right external and internal carotid arteries are approximately 4 cm/s, respectively. There is apparent complete occlusion of the common carotid artery and there is slow flow that is reversed in the external and internal carotid arteries indicating retrograde perfusion from the left side in the [place]. LEFT CAROTID ARTERY: 2D real time imaging of the left carotid system shows minimal intimal thickening of the proximal common carotid artery with some calcified plaques at the junction between the proximal and middle thirds of the common carotid artery. Noncalcified plaques are present in the distal common carotid artery and the carotid bulb. Peak systolic velocities through the left common carotid, the external carotid, and the internal carotid are 122 cm/s, 29 cm/s, and 172 cm /s, respectively. The values for the left common carotid artery and external carotid artery correspond to diameter stenoses of 0-49%. Evaluate for the left internal carotid artery corresponds to a diameter stenosis of 50-74%. VERTEBRAL ARTERIES: There is antegrade flow through the left vertebral artery. There is vascular flow in the region of the right vertebral artery but this appears to be venous. Cardiac rhythm is regular. Peak systolic velocity through the visualized portions of the left vertebral artery is 83 cm/s. This value corresponds to a diameter stenoses of 0-49%. Readin. There is complete occlusion of the right common carotid artery from its origin off of the subclavian artery to the bifurcation. There is flow in the right external and internal carotid arteries but this is of markedly low flow and apparently is reversed in direction indicating retrograde filling from the left side via the [place]. 2. There is no hemodynamically significant stenosis of the left carotid system. 3. The right vertebral artery may be totally occluded. There is antegrade flow through the left vertebral artery with a normal sinus rhythm. Dictated By: 12/01/17 4805 MICKY BREAUX MD. Signed By: 12/01/17 4662 MICKY BREAUX MD. [address] [facility] [place] [address] PH: DD: [phone] FAX: [phone] ~DIAGNOSTIC IMAGING REPORT~ Patient: Raymundo Meléndez : 1965 Sex: M Age: 52 Exam Name: CT CTA Chest Non-Coronary [facility] Exam Date: 12/01/17 Report # : [id number] CPT Code: 21267 EMR/MR #: [id number] Ordering: ZINA RAGSDALE Admiting: BRADLEY QUIROZ DO Primary: Fransisco Duff MD Attending: BRADLEY QUIROZ DO Signed CT ANGIOGRAM OF THE CHEST, 12/01/2017 8:02 AM : Clinical History: Dyspnea. Elevated D-dimer test. Previous Exam: None at this facility. Scans are performed from the base of the neck to the lower lung bases following IV administration of 65 mL of Isovue 300. Proprietary automated bolus tracking software was used to verify the timing of the injection. The base of the neck and thoracic inlet are normal except for decreased density in the thyroid gland as well as presence of a permanent tracheostomy tube. There are no abnormal axillary, supraclavicular, mediastinal, or hilar nodes. The heart is normal. There is clot present in branches to the right upper lobe causing partial occlusion. These involve branches to the 3 segments. There is no evidence of a pulmonary infarct. No other pulmonary embolism is identified. The lungs are clear and there are no pulmonary nodules or masses. Both adrenal glands and the spleen and the visualized portions of the pancreas are normal. Fatty infiltration of the liver is suspected. READIN. There are pulmonary emboli extending to branches of all 3 segments of the right upper lobe causing partial occlusion of those vessels. There is no pulmonary infarction. 2. The remainder of the study is normal. 3. There may be fatty infiltration of the liver. There is decreased density in the thyroid gland suggesting this patient may have underlying hypothyroidism. Dictated By: 12/01/17 0930 MICKY BREAUX MD. Signed By: 12/01/17 0939 MICKY BREAUX MD. [address] [facility] [place] [address] PH: DD: [phone] FAX: [phone] ~DIAGNOSTIC IMAGING REPORT~ Patient: Raymundo Meléndez : 1965 Sex: M Age: 52 Exam Name: XR CXR 2VW PA/LAT Exam Date: 12/01/17 Report # : [id number] CPT Code: 88921 EMR/MR #: [id number] Ordering: ZINA RAGSDALE Admiting: BRADLEY QUIROZ DO Primary: Fransisco Duff MD Attending: BRADLEY QUIROZ DO Signed PA /LATERAL CHEST X-RAY, 12/01/2017 6:12 AM : Clinical History: Shortness of breath. Previous Exam: 12/02/2015. There is no acute soft tissue or bony abnormality. The patient has a permanent tracheostomy tube and the tube is in the appropriate position. Heart size is normal. Lungs are clear. Mediastinal structures are normal. There are no pulmonary nodules. Reading: Normal chest x-ray. There has been no significant interval change. Dictated By: 12/01/17 0925 MICKY BREAUX MD. Signed By: 12/01/17 0932 MICKY BREAUX MD. Patient Problems - Patient Problem List (1) Acute pulmonary embolism Current Visit: Yes Status: Acute Code(s): I26.99 - Other pulmonary embolism without acute cor pulmonale Qualifiers: Pulmonary embolism type: other Acute cor pulmonale presence: without acute cor pulmonale Qualified Code(s): I26.99 - Other pulmonary embolism without acute cor pulmonale Category: Medical (2) Right carotid artery occlusion Current Visit: Yes Status: Acute Code(s): I65.21 - Occlusion and stenosis of right carotid artery Category: Medical (3) Hypokalemia Current Visit: Yes Status: Acute Code(s): E87.6 - Hypokalemia Category: Medical (4) Hypertension Current Visit: Yes Status: Acute Code(s): I10 - Essential (primary) hypertension Qualifiers: Hypertension type: essential hypertension Qualified Code(s): I10 - Essential (primary) hypertension Category: Medical (5) Tracheostomy in place Current Visit: Yes Status: Acute Code(s): Z93.0 - Tracheostomy status Category: Medical (6) hypothyroidism Current Visit: Yes Status: Chronic Category: Medical (7) cancer of vocal cords Current Visit: Yes Status: Resolved Category: Medical
--- NOTE | 2017-12-03 16:26 | DI ---
DOPPLER ULTRASOUND OF BOTH UPPER EXTREMITIES,12/01/2017 12:00 AM: Clinical History: Pulmonary embolism. Previous Exam: None at this facility. Technique: 2D real-time imaging is supplemented with color Doppler ultrasound from the proximal forea rm to the subclavian vein of both arms. Both jugular veins are also scanned. Compression maneuvers an d augmentation with the "sniff" technique and the Valsalva maneuver are performed. The deep venous system from the proximal forearm to the subclavian vein is normal in both arms. The c ephalic vein is also normal in both arms. During the scans of the jugular veins, the technologist not ed that the right common carotid artery was abnormal with apparent complete occlusion of that vessel. Readin. 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 The attending hospitalist was notified of this finding. 2. Negative venous Doppler ultrasound of both upper extremities.
== END 2017-12-02 14:04 | disposition home or self-care (01) | DRG 640 ==
LOC: ER 05:54 → MED/SURG 05:54
PROVIDERS: ADMIT Family Medicine; ATTEND Family Medicine